=== PATIENT | female | born 1950 | race Caucasian/White ===

== ENCOUNTER → 2016-10-18 | Outpatient (CLI) | payer MEDICARE, OTHER ==
[~2016-10-18] MED LIST: ARTIFICIAL TEAR15 ML OPHTH; LEVOTHROID (S100 MCG PO; MOBIC7.5 MG PO; TYLENOL325 MG PO; VITAMIN D1000 UNIT PO; WELLBUTRIN SR150 MG PO
== END ==
LOC: LGSMG 10:36
DX: R10.9 Unspecified abdominal pain (principal)

== ENCOUNTER → 2016-10-23 | Outpatient (CLI) | payer MEDICARE, OTHER | END | disposition disaster alternative care site (69) | LOC: GRAD 09:35 | DX: E01.0 Iodine-deficiency related diffuse (endemic) goiter (principal); E04.2 Nontoxic multinodular goiter ==

== ENCOUNTER → 2016-12-04 | Outpatient (CLI) | payer MEDICARE, OTHER | END | disposition disaster alternative care site (69) | LOC: GPOC 11-30 16:00 → GRAD 13:26 → GPOC 14:00 | PROC: 0G9G3ZX Drainage of Left Thyroid Gland Lobe, Percutaneous Approach, Diagnostic (ICD-10-PCS; principal; 2016-12-04) | PROC: 0G9H3ZX Drainage of Right Thyroid Gland Lobe, Percutaneous Approach, Diagnostic (ICD-10-PCS; 2016-12-04) | DX: E04.2 Nontoxic multinodular goiter (principal) ==

== ENCOUNTER → 2016-12-20 | Outpatient (CLI) | payer MEDICARE, OTHER | END | disposition disaster alternative care site (69) | LOC: GPOC 12-18 13:00 → GRAD 13:00 | PROC: 0G9G3ZX Drainage of Left Thyroid Gland Lobe, Percutaneous Approach, Diagnostic (ICD-10-PCS; principal; 2016-12-20) | PROC: 0G9H3ZX Drainage of Right Thyroid Gland Lobe, Percutaneous Approach, Diagnostic (ICD-10-PCS; 2016-12-20) | DX: E04.2 Nontoxic multinodular goiter (principal) ==